=== PATIENT | female | born 1975 | race Caucasian/White ===

== ENCOUNTER 2020-03-07 18:17 | Emergency (ER) | payer MEDICAID ==
[~2020-03-07] VITALS: Ht 165.1 cm; Wt 75.0 kg
[~2020-03-07 18:17] MED LIST: UNK ANTIBIOTIC
[2020-03-07 18:20] VITALS: BP 116/89
[2020-03-07] MEDS ORDERED: ONDANSETRON HCL 4MG/2ML INJ IV STA (18:52)
[2020-03-07] MEDS ORDERED: SODIUM CHLORIDE 0.9% 1,000 ML IV ONE (18:52)
== END 2020-03-07 22:07 | disposition left against medical advice (07) ==
LOC: ER 18:25
DX: R10.2 Pelvic and perineal pain (principal); R11.0 Nausea; R00.0 Tachycardia, unspecified
CPT/HCPCS: 99281; J7030